=== PATIENT | male | born 1945 | race Caucasian/White ===

== ENCOUNTER 2017-12-11 07:50 | Day surgery (SDC) | payer OTHER ==
[2017-12-10 15:14] LABS: Absolute Lymphocytes (CBC) 2.2 K/uL (0.7-4.9); Absolute Monocytes 0.7 K/uL (0.1-1.3); Absolute Neutrophil 7.8 K/uL (1.8-8.0); Basophils % 0.8 % (0-1.3); Eosinophils % 0.6 % (0-4.4); Hematocrit 44.4 % (39.6-49.0); Lymphocytes % 20.4 % (15.3-44.8); MCH 31.3 pg (27.0-35.0); MCV 93.9 fL (80-100); MPV 9.3 fL (7.6-11.3); Monocytes % 6.5 % (3.3-12.3); RBC Red Blood Cell Count 4.72 M/uL (4.33-5.43)
[2017-12-10 15:26] LABS: Potassium 4.2 mmol/L (3.5-5.1)
--- NOTE | 2017-12-10 15:34 | RAD REPORT ---
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 TECHNIQUE: PA and lateral views of the chest were obtained. FINDINGS: The lungs are underinflated. Lung base atelectasis present. An acute infiltrative process is not suspected. No failure or volume overload. Trachea is midline. Sternotomy wires are in place. Heart size is normal and central vasculature is within normal limits. No pleural effusion or pneumot horax seen. No acute bony finding noted. No aortic abnormality. IMPRESSION: Lung base atelectasis from shallow inspiration. No acute cardiopulmonary finding.
--- OUTSIDE RECORDS SUMMARY | 2017-12-11 07:54 | XMS REPORT | Clinical Summary ---
:1945 Author Organization [facility] Address [address] [place] [address] Care Team Providers Name Role Phone Asked, No Pcp Primary Care Provider Unavailable Allergies Active Allergy Reactions Severity Noted Date Comments Penicillins Rash Low 06/03/2017 Current Medications Prescription Sig. Disp. Refills Start Date End Date Status metoprolol Take 100 mg Active succinate XL by mouth (TOPROL-XL) 100 mg nightly. 24 hr tablet rosuvastatin Take 5 mg by Active (CRESTOR) 5 MG mouth tablet nightly. allopurinol Take 300 mg Active (ZYLOPRIM) 300 MG by mouth tablet every morning. cholecalciferol, Take 2,000 Active vitamin D3, Units by (VITAMIN D3) 2,000 mouth unit capsule nightly. capsule aspirin (ECOTRIN) Take 81 mg by 06/06/2017 Discontinued 81 MG enteric mouth daily. coated tablet rivaroxaban Take 1 tablet 30 tablet 0 06/07/2017 07/07/2017 (XARELTO) 10 mg (10 mg total) tablet by mouth daily for 30 days. Active Problems Problem Noted Date Arthritis of left hip 06/05/2017 Encounters Date Type Specialty Care Team Description 06/05/2017 - Hospital Encounter Orthopedic Surgery Chon Umaña Arthritis of left 06/06/2017 MD [place] hip 06/05/2017 Procedure Pass Orthopedic Surgery 06/05/2017 Surgery Orthopedic Surgery Chon Umaña ARTHROPLASTY, HIP, MD [place] TOTAL 06/04/2017 Anesthesia Event Orthopedic Surgery BridgerchristianKellie Benjamin NP 06/03/2017 Pre-Admit Testing Pre-Admission Chon Umaña Pre-op testing Appointment Testing MD [place] (Primary Dx) after 12/10/2016 Social History Tobacco Use Types Packs/Day Years Used Date Never Smoker Smokeless Tobacco: Never Used Alcohol Use Drinks/Week oz/Week Comments No Sex Assigned at Date Recorded Not on file Last Filed Vital Signs Vital Sign Reading Time Taken Blood Pressure 163/81 06/06/2017 12:24 PM 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 Pulse 72 06/06/2017 12:24 PM 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 Temperature 36.4 C (97.6 F) 06/06/2017 12:24 PM 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 Respiratory Rate 18 06/06/2017 12:24 PM 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 Oxygen Saturation 100% 06/06/2017 12:24 PM 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 Inhaled Oxygen Concentration - - Weight 91.3 kg (201 lb 4 oz) 06/05/2017 7:48 AM 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 Height 172.7 cm (5' 8") 06/05/2017 7:48 AM 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 Body Mass Index 30.6 06/05/2017 7:48 AM 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 Plan of Treatment Health Maintenance Due Date Last Done Comments COLON CANCER SCREENING 1996 SHINGRIX VACCINE (#1) 1996 ZOSTER VACCINE 2006 PNEUMOCOCCAL POLYSACCHARIDE VACCINE AGE 65 AND OVER 2011 PNEUMOCOCCAL-13 2011 INFLUENZA VACCINE 01/15/2018 Implants Implanted Type Area Oem Sales Manager Device Expiration Model / Identifier Date Serial / Lot Shell Actblr Mul-Hl W/ Gripton 58mm [place] - [id number] Hip Joint Left: DEPUY 04/16/2026 [id number] / Implanted: Qty: 1 on 06/05/2017 by Chon Umaña MD Implants Hip ORTHO- KNEES / [id number] Screw Bone Canc Dome 6.5x25mm Ltxf [place] - [id number] Hip Joint Left: DEPUY ORTHO 03/16/2027 [id number] / Implanted: Qty: 1 on 06/05/2017 by Chon Umaña MD Implants Hip / [id number] Stem Fml Bone Presrvtn Std Ofst Sz 6 107mm Tri-Lock - [id number] Hip Joint Left: DEPUY 08/14/2026 [id number] / Implanted: Qty: 1 on 06/05/2017 by hCon Umaña MD Implants Hip ORTHO- KNEES / [id number] Altrx +4 Neut [id number] - [id number] IPM IMPLANT Left: DEPUY 06/16/2021 [id number] / Implanted: Qty: 1 on 06/05/2017 by Chon Umaña MD DEVICES Hip ORTHOPAEDICS, / INC [id number] Delta Cer Head 05/30 36mm +8.5 - [id number] IPM IMPLANT Left: DEPUY 2021 [id number] / Implanted: Qty: 1 on 06/05/2017 by Chon Umaña MD DEVICES Hip ORTHOPAEDICS, / INC [id number] Procedures Procedure Name Priority Date/Time Associated Comments Diagnosis B NATRIURETIC PEPTIDE Routine 06/06/2017 4:30 Results for this AM 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 procedure are in the results section. CBC WITH PLATELET AND Routine 06/06/2017 4:03 Results for this DIFFERENTIAL AM 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 procedure are in the results section. ESTIMATED GFR Routine 06/06/2017 4:00 Results for this AM 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 procedure are in the results section. MAGNESIUM LEVEL Routine 06/06/2017 4:00 Results for this AM 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 procedure are in the results section. BASIC METABOLIC PANEL Routine 06/06/2017 4:00 Results for this AM 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 procedure are in the results section. XR PELVIS 1 OR 2 VW Routine 06/05/2017 12:01 Results for this PM 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 procedure are in the results section. POC GLUCOSE Routine 06/05/2017 11:51 Results for this AM 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 procedure are in the results section. SURGICAL PATHOLOGY Routine 06/05/2017 11:27 Results for this REQUEST AM 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 procedure are in the results section. XR PELVIS 1 OR 2 VW Routine 06/05/2017 11:02 Results for this AM 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 procedure are in the results section. OR FL > 1 HOUR Routine 06/05/2017 11:00 Results for this AM 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 procedure are in the results section. TX AN ELECTIVE Routine 06/05/2017 10:17 ENDOTRACHEAL AIRWAY AM 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 Procedure Note - Leanna Velasquez, SCHEDULING ADMINISTRATOR - 06/05/2017 10:16 AM 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 Airway Date/Time: 06/05/2017 10:16 AM Performed by: LEANNA VELASQUEZ Authorized by: YAMILKA FLORES Location: OR Urgency: Elective Difficult Airway: No Preoxygenated with 100% O2: Yes C-spine Precautions Maintained Throughout: Yes Mask Ventilation: Easy mask Final Airway Type: Endotracheal airway Final Endotracheal Airway: ETT Cuffed: Yes Technique Used: Direct laryngoscopy Devices/Methods Used in Placement: Intubating stylet Insertion Site: Oral Blade Type: Ervin Laryngoscope Blade/Videolaryngoscope Blade Size: 2 ETT Size (mm): 8.0 Cuff at minimum occlusion pressure: Yes Measured from: Teeth ETT to Teeth (cm): 23 Placement Verified by: CO2 detection and direct visualization Laryngoscopic view: Grade I - full view of glottis Rapid Sequence Induction (RSI): No Modified RSI: No Number of Attempts at Approach: 1 Easy atraumatic. ARTHROPLASTY, HIP, 06/05/2017 9:30 AM Arthritis of left TOTAL 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 hip POC GLUCOSE Routine 06/05/2017 8:04 AM Results for this 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 procedure are in the results section. TYPE AND SCREEN Routine 06/03/2017 11:00 AM Pre-op testing Results for this 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 procedure are in the results section. after 12/10/2016 Results B natriuretic peptide (06/06/2017 4:30 AM) BNP 96 0 - 100 pg/mL [facility] DEPARTMENT OF PATHOLOGY AND GENOMIC MEDICINE Specimen Blood Performing Organization Address City/State/Zipcode Phone Number [facility] DEPARTMENT OF PATHOLOGY AND [address] [place] [address] Bolt HR [facility] CBC with platelet and differential (06/06/2017 4:03 AM) WBC 9.98 4.50 - 11.00 k/uL [facility] DEPARTMENT OF PATHOLOGY AND GENOMIC MEDICINE RBC 4.00 (L) 4.40 - 6.00 m/uL [facility] DEPARTMENT OF PATHOLOGY AND GENOMIC MEDICINE HGB 12.6 (L) 14.0 - 18.0 g/dL [facility] DEPARTMENT OF PATHOLOGY AND GENOMIC MEDICINE HCT 37.1 (L) 41.0 - 51.0 % [facility] DEPARTMENT OF PATHOLOGY AND GENOMIC MEDICINE MCV 92.8 82.0 - 100.0 fL [facility] DEPARTMENT OF PATHOLOGY AND GENOMIC MEDICINE MCH 31.5 27.0 - 34.0 pg [facility] DEPARTMENT OF PATHOLOGY AND GENOMIC MEDICINE MCHC 34.0 31.0 - 37.0 g/dL [facility] DEPARTMENT OF PATHOLOGY AND GENOMIC MEDICINE RDW - SD 41.9 37.0 - 55.0 fL [facility] DEPARTMENT OF PATHOLOGY AND GENOMIC MEDICINE MPV 10.7 8.8 - 13.2 fL [facility] DEPARTMENT OF PATHOLOGY AND GENOMIC MEDICINE Platelet count 260 150 - 400 k/uL [facility] DEPARTMENT OF PATHOLOGY AND GENOMIC MEDICINE Nucleated RBC 0.00 /100 WBC [facility] DEPARTMENT OF PATHOLOGY AND GENOMIC MEDICINE Neutrophils 75.9 (H) 39.0 - 69.0 % [facility] DEPARTMENT OF PATHOLOGY AND GENOMIC MEDICINE Lymphocytes 12.5 (L) 25.0 - 45.0 % [facility] DEPARTMENT OF PATHOLOGY AND GENOMIC MEDICINE Monocytes 11.0 (H) 0.0 - 10.0 % [facility] DEPARTMENT OF PATHOLOGY AND GENOMIC MEDICINE Eosinophils 0.0 0.0 - 5.0 % [facility] DEPARTMENT OF PATHOLOGY AND GENOMIC MEDICINE Basophils 0.1 0.0 - 1.0 % [facility] DEPARTMENT OF PATHOLOGY AND GENOMIC MEDICINE Immature granulocytes 0.5Comment: 0.0 - 1.0 % [facility] DEPARTMENT OF "Immature PATHOLOGY AND GENOMIC granulocytes" MEDICINE (promyelocytes, myelocytes, metamyelocytes) Specimen Blood Performing Organization Address City/[facility] Phone Number [facility] DEPARTMENT OF PATHOLOGY AND [address] [place] [address] Estimated GFR (06/06/2017 4:00 AM) GFR Non Af Amer 66 mL/min/1.73 m2 [facility] DEPARTMENT OF PATHOLOGY AND GENOMIC MEDICINE GFR Af Amer 80 mL/min/1.73 m2 [facility] DEPARTMENT OF Comment: PATHOLOGY AND GENOMIC Chronic kidney disease: <60 mL/min/1.73m2 MEDICINE Kidney failure: <15 mL/min/1.73m2 The estimated GFR is calculated from the IDMS-traceable Modification of Diet in Renal Disease Equation. The accuracy of the calculation is poor when the creatinine is normal. Calculated values >90 mL/min/1.73m2 are not reported. This equation has not been validated in children (<18 years), women, the elderly (>70 years), or ethnic groups other than Caucasians and Americans. Specimen Plasma specimen Performing Organization Address City/[facility]ode Phone Number [facility] DEPARTMENT OF PATHOLOGY AND [address] [place], [place] [phone] [facility] Magnesium level (06/06/2017 4:00 AM) Magnesium 1.6 1.6 - 2.4 mg/dL [facility] DEPARTMENT OF PATHOLOGY AND GENOMIC MEDICINE Specimen Plasma specimen Performing Organization Address City/[facility] Phone Number [facility] DEPARTMENT OF PATHOLOGY AND [address] [place], [place] [phone] [facility] Basic metabolic panel (06/06/2017 4:00 AM) Sodium 138 135 - 148 mEq/L [facility] DEPARTMENT OF PATHOLOGY AND GENOMIC MEDICINE Potassium 4.7 3.5 - 5.0 mEq/L [facility] DEPARTMENT OF PATHOLOGY AND GENOMIC MEDICINE Chloride 96 (L) 98 - 112 mEq/L [facility] DEPARTMENT OF PATHOLOGY AND GENOMIC MEDICINE CO2 24 24 - 31 mEq/L [facility] DEPARTMENT OF PATHOLOGY AND GENOMIC MEDICINE Anion gap 18 (H) 7 - 15 mEq/L [facility] DEPARTMENT OF PATHOLOGY Comment: AND [facility] Starting from September , anion gap calculation no longer incorporates potassium. Please note the change. BUN 20 8 - 23 mg/dL [facility] DEPARTMENT OF PATHOLOGY AND GENOMIC MEDICINE Creatinine 1.1 0.7 - 1.2 mg/dL [facility] DEPARTMENT OF PATHOLOGY AND GENOMIC MEDICINE Glucose 138 (H) 65 - 99 mg/dL [facility] DEPARTMENT OF PATHOLOGY AND GENOMIC MEDICINE Calcium 8.9 8.8 - 10.2 mg/dL [facility] DEPARTMENT OF PATHOLOGY AND GENOMIC MEDICINE Specimen Plasma specimen Performing Organization Address City/[facility]ode Phone Number [facility] DEPARTMENT OF PATHOLOGY AND [address] [place] [phone] [facility] XR Pelvis 1 Or 2 Vw (06/05/2017 12:01 PM)Only the most recent of2 resultswithin the time period is included. Narrative Performed At EXAMINATION:XR PELVIS 1 OR 2 VW [facility] CLINICAL HISTORY:Post operative COMPARISON:Earlier today IMPRESSION: Follow-up exam demonstrates completed left hip replacement to demonstrate good alignment. No fractures are seen. [facility]-[id number] Procedure Note Hm Interface, Radiology Results Incoming - 06/05/2017 1:12 PM 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 EXAMINATION: XR PELVIS 1 OR 2 VW CLINICAL HISTORY: Post operative COMPARISON: Earlier today IMPRESSION: Follow-up exam demonstrates completed left hip replacement to demonstrate good alignment. No fractures are seen. [facility]-[id number] Performing Organization Address City/[facility] Cent[facility]ode Phone Number [facility] [address] [place] [address] POC glucose (06/05/2017 11:51 AM)Only the most recent of2 resultswithin the time period is included. POC glucose 136 (H) 65 - 99 mg/dL [facility] DEPARTMENT OF PATHOLOGY AND Comment: [facility] Notified RN Meter ID: [id number] Mechanical Shovel Operator: Krishan Beckham Performing Organization Address City/[facility]ode Phone Number [facility] DEPARTMENT OF PATHOLOGY AND [address] [place] [address] [facility] Surgical pathology request (06/05/2017 11:27 AM) [facility] DEPARTMENT OF PATHOLOGY AND GENOMIC MEDICINE Surgical pathology report See link below for PDF [facility] DEPARTMENT OF Lab Report PATHOLOGY AND GENOMIC MEDICINE Result status This is Final Report to [facility] DEPARTMENT OF [id number] PATHOLOGY AND GENOMIC MEDICINE Performing Organization Address City/[facility]ercode Phone Number [facility] DEPARTMENT OF PATHOLOGY AND [address] [place] [address] GENOMIC MEDICINE OR [place] > I Hour (06/05/2017 11:00 AM) Narrative Performed At IMPRESSION: C-arm fluoroscopy over 1 hour was provided in the OR for the [facility] referring physician. A radiologist was not present during the procedure. Refer to the Operative report issued by the performing provider for procedure details. LOCATION:[facility] OR ROOM 15 PROCEDURE:LEFT ANTERIOR HIP START TIME:930 END TIME:1100 FLUORO TIME:11 SECS DOSE (mGy):1.78 mGy TECH(S):SS Procedure Note Hm Interface, Radiology Results Incoming - 06/05/2017 11:31 AM 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 IMPRESSION: C-arm fluoroscopy over 1 hour was provided in the OR for the referring physician. A radiologist was not present during the procedure. Refer to the Operative report issued by the performing provider for procedure details. LOCATION: [facility] OR ROOM 15 PROCEDURE: LEFT ANTERIOR HIP START TIME: 930 END TIME: 1100 FLUORO TIME: 11 SECS DOSE (mGy): 1.78 mGy TECH(S): SS Performing Organization Address [facility] Centercode Phone Number [facility] [address] [place] [address] Type and screen (06/03/2017 11:00 AM) ABO grouping A [facility] DEPARTMENT OF PATHOLOGY AND GENOMIC MEDICINE Rh type POS [facility] DEPARTMENT OF PATHOLOGY AND GENOMIC MEDICINE Antibody screen (gel) NEG [facility] DEPARTMENT OF PATHOLOGY AND GENOMIC MEDICINE Specimen Blood Performing Organization Address City/[facility]/Zipcode Phone Number [facility] DEPARTMENT OF PATHOLOGY AND [address] [place] [address] GENOMIC MEDICINE after 12/10/2016 Insurance Payer Benefit Plan / Group Subscriber ID Type Phone Address MEDICARE MEDICARE PART A AND B xxxxxxxxxx Medicare [place], [place] LIFE INS [place] LIFE INS [employer] xxxxxxxxx Commercial Home: [address] [facility] [phone] [place] [id number]
[2017-12-11] MEDS ORDERED: Ringers Lactate 1,000 ML IV ONE (07:57)
[2017-12-11] MEDS ORDERED: CIPROFLOXACIN 400mg IV 400 MG/200 ML BAG IV ONE (07:58)
[2017-12-11] MEDS ORDERED: PROPOFOL 200 MG/20 ML VIAL IV ONE (08:44)
[2017-12-11] MEDS ORDERED: ONDANSETRON HCL 40 MG/20 ML VIAL ONE (08:45)
[2017-12-11] MEDS ORDERED: FENTANYL CITR 100 MCG/2 ML ONE (08:45)
[2017-12-11] MEDS ORDERED: MIDAZOLAM HCL 2 MG/2 ML INJ ONE (08:45)
[2017-12-11] MEDS ORDERED: LIDOCAINE 2% MPF 5 ML VIAL ONE (08:45)
[2017-12-11] MEDS ORDERED: ROCURONIUM 50 MG/5 ML VIAL IV ONE (08:46)
[2017-12-11] MEDS ORDERED: GLYCOPYRROLATE 0.2 MG/ML SYR ONE (10:23)
[2017-12-11] MEDS ORDERED: NEOSTIGMINE 1 MG/ML -5 ML SYRINGE ONE (10:24)
--- NOTE | 2017-12-11 10:30 | P.BOP ---
Preoperative diagnosis: Tender left inguinal hernia Postoperative diagnosis: same Primary procedure: Open repair of Tender left inguinal hernia with mesh Weather Analyst: BILLIE THOMAS Estimated blood loss: <10cc Specimen: lipoma of cord Findings: as above Anesthesia: General Transferred to: Recovery Room
--- NOTE | 2017-12-15 23:55 | OP ---
Date of Procedure: 12/11/2017 Surgeon: Bay Cornelius MD Technology Integration Specialist: Osmar Lr Preoperative Diagnosis: Tender left inguinal hernia. Postoperative Diagnosis: Tender left inguinal hernia. Procedures: Open repair of tender left inguinal hernia with mesh. Specimen: Lipoma of the cord. Anesthesia: General. Findings: Left inguinal hernia. This is a case of a 72-year-old patient, who comes to us with a lef t tender inguinal hernia. Benefits, alternatives, and risks of repair fully explained to the patient , which include but are not limited to infection, bleeding, damage to adjacent structures, anesthesia complication, recurrence, [place], and even . He also understands this may not relieve his symptoms . He might need more than one surgical intervention. He understood and most likely will be using th e mesh in that area. Pros and cons of mesh placement were fully explained to him. He agreed with th e possible mesh. The patient also has risk of chronic pain, chronic numbness, projection of a foreig n body. He understood and signed the consent. Description Of Procedure: The patient was brought to the operating room, placed in supine position. Anesthesia was done without complication. A time-out was called. Abdomen and inguinal region were prepped and draped in sterile fashion. Local anesthetic was applied and after that an inguinal incis ion was made in the left inguinal area and incision was carried down to Ronaldo's fascia until we foun d the external oblique aponeurosis that was opened in the direction of the fibers to connect to the s uperficial inguinal ring. Ilioinguinal nerve, iliohypogastric nerves were clearly identified, protec tea behind the external oblique aponeurosis. [place] was placed around the spermatic cord. The jovanny ia sac was identified and dissected free from the rest of the spermatic cord structures, making sure the vas deferens and the spermatic cord structures are intact. It looks like it is better to reduce this lipoma of the cord that we suture ligated, once again protecting the cord structures; the hernia looks better to be imbricated; so, we just imbricated the hernia, put a mesh plug in that area, secu red that in place with VersaTack elena. After that, I placed a mesh sheath on the floor of the can al securing that to the pubic tubercle, shelving edge of inguinal ligament, transversalis fascia, and the tails of this mesh were looped around the spermatic cord without strangulation. Area was irriga tea. No bleeding. At that moment, I proceeded to bring the inguinal nerve, iliohypogastric nerve ba ck into the inguinal canal, reconstructed superficial inguinal ring and closed the external oblique a poneurosis with the Prolene. Then, irrigated subcutaneous tissue, closed with 3-0 chromic and the sk in with elena. Sponge count and instrument counts were correct. The patient tolerated the procedu re well. At the end of the case, the testicles were within the scrotum. The patient was sent to [facility] in stable condition. Diagnosis: Tender left inguinal hernia. Procedures: Open repair of tender left inguinal hernia with mesh. Disposition: Home. Activity: As tolerated. No heavy lifting. Followup: Follow up in my office in 1 week. Call for appointment [phone]. Keep the area dry for 4 8 hours, then may shower. Medications: See orders. CALOS/JESSE Voice ID: [id number] Report ID: [id number]
== END 2017-12-11 13:39 | disposition home or self-care (01) ==
LOC: OR 07:50
PROVIDERS: ATTEND Surgery
PROC: 0YU60JZ Supplement Left Inguinal Region with Synthetic Substitute, Open Approach (ICD-10-PCS; principal; 2017-12-11 09:15)
DX: K40.90 Unilateral inguinal hernia, without obstruction or gangrene, not specified as recurrent (principal); Z88.0 Allergy status to penicillin; D17.79 Benign lipomatous neoplasm of other sites; Z96.642 Presence of left artificial hip joint
CPT/HCPCS: 36415; 49505; 71046; 80048; 85025; 88302; J0744; J2250; J2405; J2710; J3010; 88304